=== PATIENT | male | born 1965 | race Caucasian/White ===

== ENCOUNTER → 2017-02-04 | Day surgery (SDC) | payer BC, MEDICARE ==
[~2017-02-04] VITALS: Ht 193 cm; Wt 122.5 kg
[~2017-02-04] MED LIST: LIPOFEN150 MG PO; LISINOPRIL 10MG10 MG PO; MORPHINE SUL20 MG/ML TD; NEURONTIN 300M300 MG PO; OMEPRAZOLE40 MG PO; OXYCODONE HCL15 MG PO; OXYCODONE HYDRO15 MG PO; PERCOCET1 TA1 PO; PRAVACHOL 20MG.20 MG PO; VENLAFAXINE100 MG PO
[2017-02-04 15:27] VITALS: BP 143/86
[2017-02-04 15:55] VITALS: BP 143/86
[2017-02-04 15:56] VITALS: BP 135/76
--- NOTE | 2017-02-04 16:04 | Procedure Note ---
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 Post-procedure diagnosis: Same Indications for procedure: Very pleasant 51-year-old white male were treating with intrathecal pain pump. He presents to our clinic today for intrathecal pain pump refill. The patient's pump contains morphine sulfate 5 mg/mL at 0.55 mg per day. He also has PTM 3 times a day at 0.025 mg. Patient states he uses the PTM occasionally. Patient reports the PTM significantly reduces his pain when used. Patient doing quite well on his current settings. He is not requesting any increase in the rate. Objective: Patient's awake alert oriented 3. In no acute distress. Flexion extension lumbar spine somewhat guarded secondary to pain. Deep tendon reflexes upper lower extremity is normal. Motor strength upper lower extremities normal. There is no gross interested deficit. Gait is normal. Positive straight leg raise test at 30 degrees bilaterally. Procedure detail: Details of the procedure is going to the patient. The patient was taken to procedure room and placed in the sitting position. The area over the lumbar spine was cleansed using chlorhexidine as a cleansing solution. The pump was accessed with these is a 22-gauge needle from the refill kit. 3.2 mL of solution was withdrawn from the pump and discarded appropriately. The pump was then filled with 20 mL of morphine sulfate 5 mg/mL. The pump was interrogated. The pump rate was continued at 0.55 mg per day. The PTM dose will remain the same. 3 times a day at 0.025 mg. Plan and disposition: Patient was reevaluated 10 minutes post procedure. He is doing very well. A return to see us at his next refill date. at 1603
[2017-02-04 16:23] VITALS: BP 143/82
[2017-02-04 17:15] LABS: AMPHETAMINES/METAMPHETAMINES NEGATIVE ng/mL (<1000)
== END ==
LOC: PM 15:16 → LAB 15:16 → PM 02-11 15:00
PROVIDERS: Nurse Anesthetist, Certified Registered
DX: M51.16 Intervertebral disc disorders with radiculopathy, lumbar region (principal)

== ENCOUNTER 2017-06-06 08:15 | Day surgery (SDC) | payer BC, MEDICARE ==
[~2017-06-06] VITALS: Ht 193 cm; Wt 122.5 kg
[2017-06-06 08:27] VITALS: BP 126/74
[2017-06-06 09:07] VITALS: BP 126/74
[2017-06-06 09:08] VITALS: BP 137/84
[2017-06-06 09:18] VITALS: BP 131/88
--- NOTE | 2017-06-06 09:18 | Procedure Note ---
Procedure detail Date of procedure: 06/06/17 Anesthesiologist: Anjel Guillory Complications: None Pre-procedure diagnosis: Degenerative disease cervical spine multiple levels. Cervical postlaminectomy syndrome. Lumbar degenerative disc. Bilateral sacroiliitis. Post-procedure diagnosis: Same. Indications for procedure: Very pleasant 51-year-old white male that we've been treating for quite some time with an intrathecal pain pump contains morphine 5 mg/mL. His current rate is 0.55 mg per day. Patient seems to be doing very well with his current settings in terms of his cervical neck pain and cervical radicular pain. However, he is having some increase pain in the lumbar back as well as bilateral buttock pain. He describes the bilateral buttock pain as constant, sharp, stabbing. He reports the pain intensifies when sitting for any length of time. Patient has responded well to bilateral SI joint injections in the past. We discussed a repeat of the SI joint injections bilaterally. He wishes to proceed. He presents to our procedural clinic today for intrathecal pain pump refill. Procedure detail: Details of the procedure works pain to the patient. The patient was taken to procedure room placed in a sitting position. The area over the pump was cleansed using chlorhexidine as a cleansing solution. The pump was accessed with ease using a 22-gauge needle from refill kit. 60 L of solution was withdrawn and discarded appropriate. The pump was then filled with 20 mL of morphine sulfate 5 mg/mL. The pump was interrogated. The rate was continued at 0.55 mg per day. Objective: Patient awake alert oriented 3. In acute distress. Flexion extension lumbar spine somewhat guarded secondary to pain. Deep tendon reflexes upper lower extremities normal. Motor strength upper and lower extremities normal. There is no gross sensory deficit. Gait is normal. Plan and disposition: Discussed in detail with the patient regarding treatment options in terms of his bilateral hip pain. We will proceed with bilateral SI joint injections. We will submit for insurance approval. The patient will return as soon as possible for bilateral SI joint injections. at 0917
== END 2017-06-06 09:19 | disposition home or self-care (01) ==
LOC: PM 08:15
DX: M50.10 Cervical disc disorder with radiculopathy, unspecified cervical region (principal); M96.1 Postlaminectomy syndrome, not elsewhere classified; M51.36 Other intervertebral disc degeneration, lumbar region; M46.1 Sacroiliitis, not elsewhere classified